=== PATIENT | male | born 1955 | race Caucasian/White ===

== ENCOUNTER → 2017-11-01 | Outpatient (CLI) | payer OTHER ==
--- NOTE | 2017-11-01 14:31 | DIAGNOSTIC IMAGING REPORT ---
ULTRASOUND TESTES AND SCROTUM CLINICAL HISTORY: Left testicular mass. COMPARISON STUDY: No priors. TECHNIQUE: Real-time, grayscale, and color Doppler sonography of the testes and scrotum is performed. Images are reviewed in the transverse and longitudinal planes. FINDINGS: The testes are normal in size and homogeneous in echotexture. The right testis measures 4.3 x 2.0 x 3.4 cm and the left testis measures 4.5 x 2.1 x 3.2 cm. No intratesticular mass is seen. Testicular blood flow is normal and symmetric. Normal Doppler waveforms are identified in both testes. The epididymal heads are normal in appearance. The right epididymal head measures 1.2 cm in length and the left epididymal head measures 1.1 cm in length. There is a large and minimally complex epididymal head cyst/spermatocele on the left which measures up to 5.1 cm. There is trace right-sided hydrocele. No varicocele is seen. IMPRESSION: 1. Unremarkable sonographic appearance of the testes. 2. There is a large and minimally complex left epididymal head cyst/spermatocele which measures up to 5.1 cm. This likely corresponds to the finding of palpable concern. Electronically signed by: Jayy Diaz M.D. 11/01/2017 2:29 PM Dictated Date/Time: 11/01/2017 2:28 PM
== END | disposition home or self-care (01) ==
LOC: C.ULTR 13:37
PROVIDERS: ATTEND Family Medicine
DX: N50.3 Cyst of epididymis (principal)